=== PATIENT | female | born 1985 | race African-American/Black ===

== ENCOUNTER 2016-09-21 22:31 | Emergency (ER) | payer OTHER | END 2016-09-22 02:18 | disposition home or self-care (01) | LOC: ER 22:31 | PROC: 0HQ1XZZ Repair Face Skin, External Approach (ICD-10-PCS; principal; 2016-09-21) | DX: S09.90XA Unspecified injury of head, initial encounter (principal); S01.81XA Laceration without foreign body of other part of head, initial encounter; S40.022A Contusion of left upper arm, initial encounter; F17.200 Nicotine dependence, unspecified, uncomplicated; Z88.8 Allergy status to other drugs, medicaments and biological substances; W19.XXXA Unspecified fall, initial encounter | CPT/HCPCS: 70450; 73030-LT; 73060-LT; 84703; 90471; 90714; 99285 ==